=== PATIENT | male | born 1990 | race Caucasian/White ===

== ENCOUNTER → 2024-09-13 11:31 | Outpatient (REF) | payer OTHER, SELFPAY | LOC: RAD 11:31 | PROVIDERS: ATTENDING PHYSICIAN Physician Assistant; FAMILY PHYSICIAN Internal Medicine | DX: D16.9 Benign neoplasm of bone and articular cartilage, unspecified (principal) | CPT/HCPCS: 73610 ==

== ENCOUNTER → 2024-10-03 13:45 | Outpatient (REF) | payer OTHER, SELFPAY | LOC: MRI 3T 13:45 | PROVIDERS: ATTENDING PHYSICIAN Physician Assistant; FAMILY PHYSICIAN Family Medicine | DX: M79.89 Other specified soft tissue disorders (principal) | CPT/HCPCS: 73723; A9575 ==